=== PATIENT | female | born 1950 | race Two or more races ===

== ENCOUNTER 2020-09-06 12:06 | Outpatient (CLI) | payer OTHER | END 2020-09-06 16:42 | disposition home or self-care (01) | LOC: OFIC 805 12:06 | PROVIDERS: ATTEND Otolaryngology | DX: H02.89 Other specified disorders of eyelid (principal); J30.89 Other allergic rhinitis; J32.8 Other chronic sinusitis; R09.81 Nasal congestion ==

== ENCOUNTER 2020-09-27 08:15 | Outpatient (CLI) | payer OTHER | END 2020-09-27 10:24 | disposition home or self-care (01) | LOC: OFIC 805 08:15 | PROVIDERS: ATTEND Otolaryngology | DX: R09.81 Nasal congestion (principal); H02.89 Other specified disorders of eyelid; J30.89 Other allergic rhinitis; J32.8 Other chronic sinusitis ==